=== PATIENT | male | born 1945 | race Caucasian/White ===

== ENCOUNTER 2021-01-02 10:15 | Emergency (ER) | payer OTHER, BC ==
[2021-01-02 10:56] VITALS: BP 178/76; PULSE 61; TEMP 99.1; BMI 28.8
[2021-01-02] MEDS ORDERED: DIPHTH,PERTUSS(ACELL),TET 0.5 ML DISP.SYRIN IM ONE ×2 (11:18→12:11)
[2021-01-02] MEDS ORDERED: LIDO 2%/EPI 1:200000 PRESRVFRE (20 ML SDVIAL) ONE (17:02)
== END 2021-01-02 17:48 | disposition home or self-care (01) ==
LOC: FER 10:15
PROC: 3E0234Z Introduction of Serum, Toxoid and Vaccine into Muscle, Percutaneous Approach (ICD-10-PCS; principal; 2021-01-02)
DX: S01.312A Laceration without foreign body of left ear, initial encounter (principal)
CPT/HCPCS: 70450-TC; 72125-TC; 90471; 90715; 99284-25

== ENCOUNTER 2022-02-05 14:21 | Emergency (ER) | payer OTHER, BC ==
[2022-02-05 14:47] VITALS: BP 157/74; PULSE 72; RESP 20; TEMP 99.1; BMI 28.1
== END 2022-02-05 15:54 | disposition home or self-care (01) ==
LOC: FER 14:21
DX: S43.421A Sprain of right rotator cuff capsule, initial encounter (principal); W19.XXXA Unspecified fall, initial encounter
CPT/HCPCS: 73030-TC-RT-FY; 99283-25

== ENCOUNTER 2022-10-30 12:17 | Emergency (ER) | payer OTHER, BC ==
[2022-10-30 12:34] VITALS: BP 159/79; PULSE 62; RESP 18; TEMP 98; BMI 26.6
[2022-10-30] MEDS ORDERED: DIPHTH,PERTUSS(ACELL),TET 0.5 ML DISP.SYRIN IM ONE ×2 (12:35→12:36)
== END 2022-10-30 14:31 | disposition home or self-care (01) ==
LOC: FER 12:17
DX: S02.2XXA Fracture of nasal bones, initial encounter for closed fracture (principal); W19.XXXA Unspecified fall, initial encounter
CPT/HCPCS: 70450-TC; 70486-TC; 99284-25

== ENCOUNTER 2022-12-23 18:27 | Emergency (ER) | payer OTHER, BC ==
[2022-12-23 18:43] VITALS: BP 137/75; PULSE 74; RESP 18; TEMP 98.2; BMI 26.6
== END 2022-12-23 19:23 | disposition home or self-care (01) ==
LOC: FER 18:27
PROC: 0HQ1XZZ Repair Face Skin, External Approach (ICD-10-PCS; principal; 2022-12-23)
DX: S01.81XA Laceration without foreign body of other part of head, initial encounter (principal); W01.198A Fall on same level from slipping, tripping and stumbling with subsequent striking against other object, initial encounter
CPT/HCPCS: 99283-25